=== PATIENT | female | born 1995 | race Caucasian/White ===

== ENCOUNTER 2016-08-13 00:13 | Outpatient (CLI) | payer OTHER | END 2016-08-13 02:23 | disposition home or self-care (01) | LOC: GENOP 00:13 | DX: O42.913 Preterm premature rupture of membranes, unspecified as to length of time between rupture and onset of labor, third trimester (principal); Z3A.36 36 weeks gestation of pregnancy | CPT/HCPCS: 81001; 83518; G0463 ==

== ENCOUNTER 2016-08-20 10:28 | Inpatient (IN) | payer OTHER ==
[2016-08-20 15:42] LABS: HEMOGLOBIN 10.8 gm/dl (12.3-15.3); RED BLOOD COUNT 4.18 M/UL (4.00-5.10); WHITE BLOOD COUNT 9.2 K/UL (4.5-11.0)
[2016-08-23] MEDS ORDERED: COLACE 100MG C100 MG PO (11:13)
== END 2016-08-23 12:11 | disposition home or self-care (01) | DRG 775 ==
LOC: GENOP 10:28 → OB 13:21
PROVIDERS: Obstetrics & Gynecology; ADMIT Obstetrics & Gynecology
PROC: 10E0XZZ Delivery of Products of Conception, External Approach (ICD-10-PCS; principal; 2016-08-20)
DX: O80 Encounter for full-term uncomplicated delivery (principal); Z3A.37 37 weeks gestation of pregnancy; Z37.0 Single live birth; Z28.21 Immunization not carried out because of patient refusal
CPT/HCPCS: 36415; 82800; 83518; 85014; 85018; 85025; J2210; J2300; J2405; J2590; J3430; J7120

== ENCOUNTER 2021-05-15 09:56 | Emergency (ER) | payer OTHER ==
[~2021-05-15 09:56] MED LIST: AMOXICILLIN875 MG PO; BENTYL 10MG CAP10 MG PO; COLACE 100MG C100 MG PO; PEPCID20 MG PO; ZOFRAN ODT 4 MG4 MG SL
[2021-05-15 11:44] LABS: HEMOGLOBIN 11.6 gm/dl (12.3-15.3); RED BLOOD COUNT 5.24 M/UL (4.00-5.10); WHITE BLOOD COUNT 5.2 K/UL (4.5-11.0)
[2021-05-15 12:03] LABS: BUN/CREATININE RATIO 24 (0-10)
[2021-05-15] MEDS ORDERED: ONDANSETRON ODT4 MG SL (13:29)
[2021-05-15] MEDS ORDERED: PROTONIX40 MG PO (13:29)
== END 2021-05-15 13:44 | disposition home or self-care (01) ==
LOC: ER1 09:56
PROVIDERS: Physician Assistant
DX: R10.13 Epigastric pain (principal); R10.11 Right upper quadrant pain; R10.12 Left upper quadrant pain; K21.9 Gastro-esophageal reflux disease without esophagitis; I10 Essential (primary) hypertension; R11.2 Nausea with vomiting, unspecified
CPT/HCPCS: 76705; 80053; 81001; 82150; 83690; 84703; 85025; 99284